=== PATIENT | male | born 1990 | race Caucasian/White ===

== ENCOUNTER 2017-06-29 20:45 | Emergency (ER) | payer OTHER ==
[~2017-06-29] VITALS: Ht 182.9 cm; Wt 116.2 kg
[2017-06-29] MEDS ORDERED: MOTRIN600 MG PO (22:33)
[2017-06-29] MEDS ORDERED: ZOFRAN ODT4 MG PO (22:33)
[2017-06-29 23:00] VITALS: BP 134/96
== END 2017-06-29 23:03 | disposition home or self-care (01) ==
LOC: EME 20:45
DX: J20.8 Acute bronchitis due to other specified organisms (principal); B34.9 Viral infection, unspecified; F31.9 Bipolar disorder, unspecified; Z72.0 Tobacco use; Z88.1 Allergy status to other antibiotic agents
CPT/HCPCS: 71020; 87502; 99281; 99284

== ENCOUNTER 2017-10-09 06:36 | Inpatient (IN) | payer OTHER ==
[~2017-10-09] VITALS: Ht 185.4 cm; Wt 56.0 kg
[~2017-10-09 06:36] MED LIST: MOTRIN600 MG PO; ZOFRAN ODT4 MG PO
[2017-10-09 07:57] LABS: HEMATOCRIT 46.3 % (38.0-50.0); HEMOGLOBIN 15.9 G/DL (12.5-16.6); MCH 30.6 PG (29.0-34.0); MCHC 34.3 G/DL (30.0-36.0); MCV 89.2 FL (86-99); PLATELET COUNT 360 K/uL (156-360); RBC DIS.WIDTH-CV 13.7 % (11.8-14.6); RBC DIS.WIDTH-SD 44.5 % (39-53); RED BLOOD COUNT 5.19 M/uL (4.00-5.50); WHITE BLOOD COUNT 15.3 K/uL (4.1-10.2)
[2017-10-09 08:28] LABS: ALBUMIN 4.3 G/DL (3.2-4.8); ALKALINE PHOSPHATASE 69 IU/L (3-129); ALT (GPT) 26 IU/L (3-49); AST (GOT) 14 IU/L (2-34); CHLORIDE 109 MEQ/L (99-109); CREATININE 1.1 MG/DL (0.6-1.3); GFR ESTIMATE (CALCULATED) > 59 mL/min/ (58.99-99999); GLUCOSE 88 mg/dL (70-99); SERUM ETHYL ALCOHOL < 10 mg/dL; SODIUM 139 MEQ/L (136-147); TOTAL BILIRUBIN 0.3 MG/DL (0.0-1.0); TOTAL PROTEIN 6.9 G/DL (6.4-8.3); UREA NITROGEN (BUN) 18 mg/dL (9-23)
[2017-10-09 11:13] LABS: APPEARANCE CLEAR ((CLEAR)); BILIRUBIN NEGATIVE; BLOOD NEGATIVE; COLOR YELLOW ((YELLOW)); GLUCOSE (STRIP) NEGATIVE; KETONES NEGATIVE; LEUKOCYTES NEGATIVE; NITRITE NEGATIVE; PROTEIN (STRIP) NEGATIVE; SPECIFIC GRAVITY 1.019 (1.000-1.030); UCUL ADDED? NO; UROBILINOGEN 0.2 MG/DL (0.2-1.0)
[2017-10-09 11:28] LABS: AMPHETAMINE NEGATIVE (500 ng/mL); BARBITURATES NEGATIVE (200 ng/mL); BENZODIAZEPINES PRESUMPTIVE POSITIVE (150 ng/mL); BUPRENORPHINE NEGATIVE (10 ng/mL); COCAINE PRESUMPTIVE POSITIVE (150 ng/mL); METHADONE NEGATIVE (200 ng/mL); METHAMPHETAMINE NEGATIVE (500 ng/mL); OPIATES (MORPHINE) NEGATIVE (100 ng/mL); OXYCODONE NEGATIVE (100 ng/mL); PHENCYCLIDINE NEGATIVE (25 ng/mL); PROPOXYPHENE NEGATIVE (300 ng/mL); THC CANNABINOIDS NEGATIVE (50 ng/mL); TRICYCLIC ANTIDEPRESSANTS PRESUMPTIVE POSITIVE (300 ng/mL)
[2017-10-09 12:01] LABS: BENZODIAZEPINES, URINE SCREEN POSITIVE (200 ng/mL)
[2017-10-09 18:28] VITALS: BP 126/63
[2017-10-09] MEDS ORDERED: ALPRAZOLAM1 MG PO (19:24)
[2017-10-09] MEDS ORDERED: LITHOBID300 MG PO (19:25)
[2017-10-09] MEDS ORDERED: MORPHINE SULFAT30 M2 PO (19:27)
[2017-10-09] MEDS ORDERED: ROBAXIN500 MG PO (19:28)
[2017-10-09] MEDS ORDERED: FLEXERIL10 MG PO (20:15)
[2017-10-09] MEDS ORDERED: GABAPENTIN300 MG PO (20:16)
[2017-10-09] MEDS ORDERED: GEODON60 MG PO (20:17)
[2017-10-09] MEDS ORDERED: SEROQUEL100 MG PO (20:17)
[2017-10-09] MEDS ORDERED: HALDOL10 MG PO (20:18)
[2017-10-09] MEDS ORDERED: COGENTIN1 MG PO (20:18)
[2017-10-09] MEDS ORDERED: KLONOPIN1 MG PO (20:18)
[2017-10-10 07:49] VITALS: BP 105/56
[2017-10-10 16:13] VITALS: BP 144/78
[2017-10-10 18:50] VITALS: BP 121/74
[2017-10-11 07:51] VITALS: BP 120/75
[2017-10-11 15:38] VITALS: BP 135/66
[2017-10-12 07:56] VITALS: BP 117/66
[2017-10-12 15:45] VITALS: BP 120/87
[2017-10-13 08:12] VITALS: BP 111/70
[2017-10-13] MEDS ORDERED: HALDOL5 MG PO ×2 (09:23→09:42)
[2017-10-13] MEDS ORDERED: LITHOBID300 MG PO (09:23)
[2017-10-13] MEDS ORDERED: COGENTIN1 MG PO ×2 (09:23→09:42)
[2017-10-13] MEDS ORDERED: LORAZEPAM1 MG PO (09:28)
== END 2017-10-13 11:20 | disposition home or self-care (01) | DRG 885 ==
LOC: EME → EDBD 06:36 → 1WEST 15:46 → EDOF 15:46 → ENRESERV 18:26 → 1WEST 18:27
PROVIDERS: Emergency Medicine
DX: F33.1 Major depressive disorder, recurrent, moderate (principal); T42.4X2A Poisoning by benzodiazepines, intentional self-harm, initial encounter; T42.8X2A Poisoning by antiparkinsonism drugs and other central muscle-tone depressants, intentional self-harm, initial encounter; T48.1X2A Poisoning by skeletal muscle relaxants [neuromuscular blocking agents], intentional self-harm, initial encounter; F20.9 Schizophrenia, unspecified; F43.10 Post-traumatic stress disorder, unspecified; F60.3 Borderline personality disorder; F41.9 Anxiety disorder, unspecified; F14.10 Cocaine abuse, uncomplicated; I10 Essential (primary) hypertension; B19.20 Unspecified viral hepatitis C without hepatic coma; F17.210 Nicotine dependence, cigarettes, uncomplicated
CPT/HCPCS: 73110; 80053; 80178; 81003; 84999; 85027; 90837; 93005; 97150 GO; 97166 GO; 99281; 99284; G0480; J3486; Q0177

== ENCOUNTER 2018-02-16 18:37 | Emergency (ER) | payer OTHER ==
[~2018-02-16] VITALS: Ht 185.4 cm; Wt 105.6 kg
[~2018-02-16 18:37] MED LIST changes: +ALPRAZOLAM1 MG PO; +COGENTIN1 MG PO; +FLEXERIL10 MG PO; +GABAPENTIN300 MG PO; +GEODON60 MG PO; +HALDOL10 MG PO; +HALDOL5 MG PO; +KLONOPIN1 MG PO; +LITHOBID300 MG PO; +LORAZEPAM1 MG PO; +MORPHINE SULFAT30 M2 PO; +ROBAXIN500 MG PO; +SEROQUEL100 MG PO
[2018-02-16 19:19] LABS: CHLORIDE 109 mEq/L (99-109); HEMATOCRIT 47.3 % (38.0-50.0); HEMOGLOBIN 16.6 G/DL (12.5-16.6); MCH 30.6 PG (29.0-34.0); MCHC 35.1 G/DL (30.0-36.0); MCV 87.1 FL (86-99); PLATELET COUNT 312 K/uL (156-360); POTASSIUM 3.9 mEq/L (3.7-5.4); RBC DIS.WIDTH-CV 13.8 % (11.8-14.6); RBC DIS.WIDTH-SD 43.5 % (39-53); RED BLOOD COUNT 5.43 M/uL (4.00-5.50); SODIUM 141 mEq/L (136-147); WHITE BLOOD COUNT 11.5 K/uL (4.1-10.2)
[2018-02-16 19:20] LABS: GLUCOSE 93 mg/dL (70-99)
[2018-02-16 19:24] LABS: GFR ESTIMATE (CALCULATED) > 59 mL/min/ (58.99-99999)
[2018-02-16 19:25] LABS: UREA NITROGEN (BUN) 9 mg/dL (9-23)
[2018-02-16 19:29] LABS: TROP-I INTERPRETATION NEGATIVE; TROPONIN-I < 0.01 ng/mL (0.0-0.30)
[2018-02-16 20:11] LABS: ALBUMIN 4.6 g/dL (3.2-4.8)
[2018-02-16 20:12] LABS: AMYLASE 54 IU/L (1-118)
[2018-02-16 20:14] LABS: TOTAL PROTEIN 7.6 g/dL (6.4-8.3)
[2018-02-16 20:16] LABS: TOTAL BILIRUBIN 0.7 mg/dL (0.0-1.0)
[2018-02-16 20:17] LABS: ALKALINE PHOSPHATASE 78 IU/L (3-129)
[2018-02-16 20:19] LABS: AST (GOT) 22 IU/L (2-34); DIRECT BILIRUBIN 0.3 mg/dL (0.0-0.3)
[2018-02-16 20:20] LABS: ALT (GPT) 34 IU/L (3-49); LIPASE 25 U/L (1.0-51.0)
[2018-02-16 22:26] LABS: TROP-I INTERPRETATION NEGATIVE; TROPONIN-I < 0.01 ng/mL (0.0-0.30)
[2018-02-16] MEDS ORDERED: MOTRIN600 MG PO (22:34)
[2018-02-16] MEDS ORDERED: FLEXERIL5 MG PO (22:34)
[2018-02-16] MEDS ORDERED: ATARAX,VISTARIL25 MG PO (22:34)
[2018-02-16 23:04] VITALS: BP 130/97
== END 2018-02-16 23:15 | disposition home or self-care (01) ==
LOC: EME 18:37
PROVIDERS: Physician Assistant
DX: S29.011A Strain of muscle and tendon of front wall of thorax, initial encounter (principal); X58.XXXA Exposure to other specified factors, initial encounter; F31.9 Bipolar disorder, unspecified; B19.20 Unspecified viral hepatitis C without hepatic coma; F60.3 Borderline personality disorder; F43.10 Post-traumatic stress disorder, unspecified; F20.9 Schizophrenia, unspecified; F17.200 Nicotine dependence, unspecified, uncomplicated
CPT/HCPCS: 71046; 80048; 80076; 82150; 83690; 84484; 85027; 85379; 93005; 99281; 99285; J1885